=== PATIENT | male | born 1965 | race African-American/Black ===

== ENCOUNTER → 2019-03-06 | Outpatient (CLI) | payer OTHER ==
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
--- NOTE | 2019-03-06 14:51 | RAD ---
MRI study of the right hip without contrast Clinical indications: Chronic right hip pain. History of fall 4 years ago. No surgical history. FINDINGS: No avascular necrosis or bone contusion or fracture or marrow infiltrative process is seen. There is moderate degenerative spurring of the right femoral head. There is chondromalacia of the superior-lateral aspect of the right hip joint and there is moderate subchondral cyst formation of the superior-lateral aspect of the acetabulum. Less prominent subchondral cyst formation is seen within the anterior aspect of the acetabular labrum. Joint space narrowing is seen here involving the anterior aspect of the right hip joint. No significant hip joint effusion is seen. No loose body is evident. There is degenerative attenuation and signal abnormality of the anterior superior aspect of the acetabular labrum. No paralabral ganglion cyst is seen. The conjoined hamstring tendon is intact and no ischial tuberosity bursitis is seen. The gluteal muscle tendons are intact and no greater trochanteric bursitis is evident. The iliopsoas tendon is intact and no iliopsoas bursitis is seen. No muscle edema is evident. IMPRESSION: Moderate primary degenerative osteoarthritis of the right hip joint. There is degenerative signal abnormality and attenuation of the anterior superior aspect of the acetabular labrum. Electronically signed by: Ronal Phillips MD (03/06/2019 2:48 PM) [id number]
== END | disposition home or self-care (01) ==
LOC: MRI 11:44
PROVIDERS: ATTEND Registered Nurse
DX: M16.11 Unilateral primary osteoarthritis, right hip (principal); M94.251 Chondromalacia, right hip
CPT/HCPCS: 73502; 73721